=== PATIENT | male | born 1980 | race Caucasian/White ===

== ENCOUNTER 2022-05-26 01:08 | Emergency (ER) | payer OTHER ==
[~2022-05-26] VITALS: Ht 180.3 cm; Wt 96.6 kg
--- OUTSIDE RECORDS SUMMARY | 2022-05-26 03:16 | XMS ---
PreManage Notification: LAUREN CLEMENTE Security [employer] Blasting Events No recent Security Events currently on file CRITERIA MET - [facility] - 2 Visits in 30 Days CARE PROVIDERS There are no care providers on record at this time. Devora has no Care Guidelines for this patient. Clarissa VISIT COUNT (12 MO.) 1 Jonathan Tolliver [address] [place], [place] [address]Dee Dee TOTAL 2 NOTE: Visits indicate total known visits. ED/UCC VISIT TRACKING (12 MO.) [facility] COMPLAINT: - CP 05/25/2022 08:39 [facility] TYPE: Emergency DIAGNOSES: - Chest pain, unspecified - chest pain INPATIENT VISIT TRACKING (12 MO.) No inpatient visits to display in this time frame [email or web address]
--- NOTE | 2022-05-26 17:11 | EKG ---
[facility] [address] [place], [place] [address] Signed Normal sinus rhythm Normal ECG No previous ECGs available Confirmed by KEENAN CHACKO MD ([id number] on 05/26/2022 5:11:00 PM Electronically Signed By: KEENAN CHACKO MD 05/26/22 1711 PATIENT NAME: LAUREN CLEMENTE Cece Electrocardiogram DATE OF : 78 PHYSICIAN: KEENAN CHACKO MD REPORT #: [id number] REPORT IS CONFIDENTIAL AND NOT TO BE RELEASED WITHOUT AUTHORIZATION
== END 2022-05-26 04:22 | disposition home or self-care (01) ==
LOC: ED 01:08
DX: R07.89 Other chest pain (principal); Z20.822 Contact with and (suspected) exposure to COVID-19
CPT/HCPCS: 36415; 71045; 80053; 83880; 84484; 85025; 85379; 85610; 85730; 87502; 93005; 93010; 99285-25; C9803; U0003